=== PATIENT | female | born 1970 | race Caucasian/White ===

== ENCOUNTER 2021-03-29 19:28 | Emergency (ER) | payer OTHER ==
[2021-03-29 19:51] VITALS: BP 126/78; PULSE 93; RESP 20; TEMP 98.2
[2021-03-29] MEDS ORDERED: KETOROLAC 15 MG/ML 1 ML VIAL IM STA (20:11)
--- NOTE | 2021-03-29 20:51 | ED ---
Extremity Problem HPI - General Chief complaint: Extremity Problem,Nontraumatic Stated complaint: L Leg Pain/ Swelling Time Seen by Provider: 03/29/21 19:56 Source: patient Mode of arrival: ambulatory Limitations: no limitations - History of Present Illness Initial comments: 50 year-old female patient presents to the emergency department for evaluation o f left lower leg pain and swelling. States that she has had pain to the calf for the last week. States over the last few days she has had swelling to the leg and ankle. States that she may have injured it a couple of weeks ago, but denies any significant pain at time of injury. She denies any history of DVT. Denies any recent long trips or travel. Denies fever or chills. Patient presented herself to [facility] today to get help for alcohol addiction, they wanted her to come in for evaluation and treatment first. She denies any chest pain, shortness of breath, or palpitations. - Related Data Previous Rx's Medication Instructions Recorded Ibuprofen [Motrin] 600 mg PO Q8HR PRN #30 tab 03/29/21 Allergies Allergy/AdvReac Type Severity Reaction Status Date / Time No Known Allergies Allergy Verified 03/29/21 19:51 Review of Systems ROS Statement: Those systems with pertinent positive or pertinent negative responses have been documented in the HPI. ROS Other: All systems not noted in ROS Statement are negative. Past Medical History Past Medical History: Asthma History of Any Multi-Drug Resistant Organisms: None Reported Past Surgical History: No Surgical Hx Reported Past Psychological History: ADD/ADHD Smoking Status: Former smoker, Vaper Past Alcohol Use History: Abuse, Daily Past Drug Use History: None Reported General Exam Limitations: no limitations General appearance: alert, in no apparent distress, other (Physical well- developed, well-nourished adult female patient in no acute distress. Vital signs upon presentation are temperature 98.2F, pulse 93, respirations 20, blood pressure 126/78, pulse ox 100% on room air.) Eye exam: Present: normal appearance, PERRL, EOMI. Absent: scleral icterus, conjunctival injection, periorbital swelling ENT exam: Present: normal exam, normal oropharynx, mucous membranes moist Respiratory exam: Present: normal lung sounds bilaterally. Absent: respiratory distress, wheezes, rales, rhonchi, stridor Cardiovascular Exam: Present: regular rate, normal rhythm, normal heart sounds. Absent: systolic murmur, diastolic murmur, rubs, gallop, clicks GI/Abdominal exam: Present: soft, normal bowel sounds. Absent: distended, tenderness, guarding, rebound, rigid Extremities exam: Present: full ROM, normal capillary refill, calf tenderness (left), other (There is nonpitting edema noted to the left lower leg and ankle. Skin is pink, warm, dry. Cap refill less than 3 seconds. Pedal pulses 2+. Post tibial pulses 2+. There is calf tenderness.). Absent: tenderness, pedal edema, joint swelling Neurological exam: Present: alert, oriented X3, CN II-XII intact Psychiatric exam: Present: normal affect, normal mood Skin exam: Present: warm, dry, intact, normal color. Absent: rash Course Vital Signs 03/29/21 19:47 Temperature 98.2 F Pulse Rate 93 Respiratory 20 Rate Blood Pressure 126/78 O2 Sat by Pulse 100 Oximetry Medical Decision Making - Medical Decision Making 50-year-old female patient presents the emergency department today for evaluation of left lower leg swelling and ankle swelling. Physical examination did reveal soft tissue swelling with no pitting to the left ankle and left lower leg, calf tenderness. Neurovascular status is otherwise intact. She is afebrile normal vital signs. Ultrasound of the left lower extremity was obtained and was negative for evidence for DVT but there was a Mcelroy cyst. X- rays of the ankle and tib-fib are negative for acute fracture. We did give compression stocking. Educated regarding elevation. She is given ibuprofen for pain. She'll be discharged, medically clear for [facility]. Instructed to follow-up with her primary care physician for recheck in 1-2 days. Return parameters were discussed in detail. She verbalizes understanding and agrees with this plan. Case discussed with my attending Dr. Chicas. - Radiology Data Radiology results: report reviewed, image reviewed Disposition Clinical Impression: Leg edema, left, Synovial cyst of popliteal space [Mcelroy], left knee Disposition: HOME SELF-CARE Condition: Good Instructions (If sedation given, give patient instructions): Bakers Cyst (ED), Leg Edema (ED) Additional Instructions: Use compression stocking throughout the day, remove while sleeping. Keep leg elevated. Take Tylenol Motrin for pain control. Follow-up with the primary care physician for recheck in 1-2 days. Return for any new, worsening, or concerning symptoms. Prescriptions: Ibuprofen [Motrin] 600 mg PO Q8HR PRN #30 tab PRN Reason: Pain Is patient prescribed a controlled substance at d/c from ED?: No Referrals: Nonstaff,Physician [Primary Care Provider] - 1-2 days Time of Disposition: 22:44
--- NOTE | 2021-03-29 21:41 | US ---
EXAMINATION TYPE: US venous doppler duplex LE LT DATE OF EXAM: 03/29/2021 8:11 PM COMPARISON: NONE CLINICAL HISTORY: Left calf pain, swelling. Left calf pain and swelling x 1 week. No hx of DVT. Patie nt does not take blood thinners. SIDE PERFORMED: Left TECHNIQUE: The lower extremity deep venous system is examined utilizing real time linear array sonog ashlee with graded compression, doppler sonography and color-flow sonography. VESSELS IMAGED: Common Femoral Vein Deep Femoral Vein Greater Saphenous Vein * Femoral Vein Popliteal Vein Small Saphenous Vein * Proximal Calf Veins (* superficial vessels) Left Leg: No evidence of DVT in veins imaged at this time. Complex area seen left medial popliteal a krissy measuring 3.8 x 2.6 x 0.9 cm. IMPRESSION: No evidence of deep vein thrombosis in the left leg. Popliteal cyst noted.
--- NOTE | 2021-03-29 22:27 | XR ---
EXAMINATION TYPE: XR ankle complete LT DATE OF EXAM: 03/29/2021 COMPARISON: NONE HISTORY: Leg pain TECHNIQUE: 3 views FINDINGS: Ankle mortise is anatomic. I see no fracture nor dislocation. There is some soft tissue swe lling around the ankle. IMPRESSION: Mild soft tissue swelling. No fracture seen.
--- NOTE | 2021-03-29 22:28 | XR ---
EXAMINATION TYPE: XR tibia fibula LT DATE OF EXAM: 03/29/2021 COMPARISON: NONE HISTORY: Leg pain Pain and swelling TECHNIQUE: 2 views FINDINGS: Tibia and fibula appear intact. I see no fracture nor dislocation. Joint spaces appear norm al. IMPRESSION: Normal exam. No fracture.
== END 2021-03-29 22:52 | disposition home or self-care (01) ==
LOC: EC 19:28
DX: M71.22 Synovial cyst of popliteal space [Baker], left knee (principal)
CPT/HCPCS: 73590; 73610; 93971; 99284; 96372; J1885